=== PATIENT | female | born 1960 | race Caucasian/White ===

== ENCOUNTER 2020-12-08 02:25 | Emergency (ER) | payer OTHER ==
[2020-12-08 02:39] VITALS: TEMP 98.6; BMI 22.3
[2020-12-08] MEDS ORDERED: FAMOTIDINE 20 MG/50 ML IVPB 20 MG/50 ML MG IVPB ONE (03:12)
[2020-12-08] MEDS ORDERED: MAG HYDROX/AL HYDROX/SIMETH 30 ML UNIT-DOSE CUP PO ONE (03:12)
[2020-12-08] MEDS ORDERED: SODIUM CHLORIDE 1,000 ML IV STA (03:12)
[2020-12-08] MEDS ORDERED: ONDANSETRON 4 MG/2 ML VIAL IVPUSH ONE ×2 (03:16→08:55)
[2020-12-08 04:05] LABS: HEMATOCRIT 44.4 % (32.4-45.2); HEMOGLOBIN 15.4 GM/dL (10.7-15.3); MCH 30.4 pg (25.7-33.7); MCHC 34.6 g/dl (32.0-36.0); MEAN CELL VOLUME 87.7 fl (80-96); MEAN PLT VOLUME 9.1 fl (7.5-11.1); PLATELET COUNT 235 K/MM3 (134-434); RBC 5.06 M/mm3 (3.60-5.2); RDW 13.1 % (11.6-15.6); WHITE BLOOD COUNT 12.7 K/mm3 (4.0-10.0)
[2020-12-08 04:28] LABS: POTASSIUM 3.7 mmol/L (3.5-5.1)
[2020-12-08 04:30] LABS: CALCIUM 9.4 mg/dL (8.5-10.1)
[2020-12-08 04:31] LABS: ALBUMIN 3.7 g/dl (3.4-5.0); BLOOD UREA NITROGEN 14.2 mg/dL (7-18)
[2020-12-08 04:34] LABS: CREATININE 0.9 mg/dL (0.55-1.3)
[2020-12-08 04:35] LABS: BILIRUBIN,TOTAL 0.7 mg/dL (0.2-1)
[2020-12-08 04:37] LABS: TOT PROT 7.6 g/dl (6.4-8.2)
[2020-12-08 08:10] VITALS: BP 159/83
[2020-12-08 08:42] LABS: EPI CELLS 6 /uL (0-25.1); HYALINE CASTS 1 /uL (0-3.1); PH,URINE 6.5 (5.0-8.0); URINE APPEARANCE CLEAR; URINE BACTERIA 67 /uL (0-1359); URINE BILIRUBIN NEGATIVE (NEGATIVE); URINE COLOR YELLOW; URINE GLUCOSE (UA) NEGATIVE (NEGATIVE); URINE KETONE TRACE (NEGATIVE); URINE LEUK ESTERASE NEGATIVE (NEGATIVE); URINE NITRITE NEGATIVE (NEGATIVE); URINE PROTEIN NEGATIVE (NEGATIVE); URINE RBC 37 /uL (0-23.9); URINE UROBILINOGEN 0.2 mg/dL (0.2-1.0); URINE WBC 2 /uL (0-25.8)
[2020-12-08 08:51] VITALS: PULSE 72
[2020-12-08] MEDS ORDERED: ONDANSETRON 4 MG/2 ML VIAL ONE (09:02)
== END 2020-12-08 09:11 | disposition home or self-care (01) ==
LOC: JER 02:25
PROC: 3E033NZ Introduction of Analgesics, Hypnotics, Sedatives into Peripheral Vein, Percutaneous Approach (ICD-10-PCS; principal; 2020-12-08)
PROC: 3E0337Z Introduction of Electrolytic and Water Balance Substance into Peripheral Vein, Percutaneous Approach (ICD-10-PCS; 2020-12-08)
PROC: 3E033GC Introduction of Other Therapeutic Substance into Peripheral Vein, Percutaneous Approach (ICD-10-PCS; 2020-12-08)
DX: R10.13 Epigastric pain (principal); R11.2 Nausea with vomiting, unspecified
CPT/HCPCS: 36415; 71045-TC-FY; 80053; 81003; 83605; 83690; 85027; 87086; 87804; 93005; 93010; 99285-25

== ENCOUNTER 2020-12-09 12:39 | Inpatient (IN) | payer OTHER ==
[2020-12-09] MEDS ORDERED: LACTATED RINGERS SOLUTION 1000 ML INFUS.BAG IV ONE ×2 (13:14→16:52)
[2020-12-09] MEDS ORDERED: ONDANSETRON 4 MG/2 ML VIAL IVPUSH ONE (13:20)
[2020-12-09] MEDS ORDERED: FAMOTIDINE 20 MG/50 ML IVPB 20 MG/50 ML MG IVPB ONE ×2 (13:20→13:43)
[2020-12-09 13:36] LABS: BASO % 0.5 % (0-2.0); EOS % 0.6 % (0-4.5); HEMATOCRIT 45.2 % (32.4-45.2); HEMOGLOBIN 15.5 GM/dL (10.7-15.3); LYMPH % 9.8 % (8-40); MCH 30.2 pg (25.7-33.7); MCHC 34.4 g/dl (32.0-36.0); MEAN CELL VOLUME 87.8 fl (80-96); MEAN PLT VOLUME 9.5 fl (7.5-11.1); MONO % 6.4 % (3.8-10.2); NEUT % 82.7 % (42.8-82.8); PLATELET COUNT 237 K/MM3 (134-434); RBC 5.15 M/mm3 (3.60-5.2); RDW 13.3 % (11.6-15.6)
[2020-12-09] MEDS ORDERED: METOCLOPRAMIDE HCL INJECTION 10 MG/2 ML VIAL IVPB ONE (13:38)
[2020-12-09] MEDS ORDERED: METOCLOPRAMIDE HCL INJECTION 10 MG/2 ML VIAL ONE (13:43)
[2020-12-09 14:01] LABS: CHLORIDE 103 mmol/L (98-107); POTASSIUM 3.4 mmol/L (3.5-5.1); SODIUM 138 mmol/L (136-145)
[2020-12-09 14:04] LABS: CALCIUM 9.5 mg/dL (8.5-10.1)
[2020-12-09 14:05] LABS: ANION GAP 10 MMOL/L (8-16); BLOOD UREA NITROGEN 16.7 mg/dL (7-18); CO2 24 mmol/L (21-32); GLUCOSE,RANDOM 97 mg/dL (74-106); LIPASE 55 U/L (73-393); MAGNESIUM 2.1 mg/dL (1.8-2.4)
[2020-12-09 14:07] LABS: CREATININE 0.9 mg/dL (0.55-1.3); SGOT/AST 12 U/L (15-37); SGPT/ALT 21 U/L (13-61)
[2020-12-09 14:09] LABS: BILIRUBIN,TOTAL 0.8 mg/dL (0.2-1); TOT PROT 7.6 g/dl (6.4-8.2)
[2020-12-09 14:10] LABS: ALK PHOS 127 U/L (45-117)
[2020-12-09] MEDS ORDERED: VANCOMYCIN 1 GM in D5W (PRE-DOCKED) 1,000 MG/250 ML IVPB ONE (17:39)
[2020-12-09] MEDS ORDERED: AMPICILLIN NA/SULBACTAM NA 3 GM in SODIUM CHLORIDE 100 ML IVPB ONE (17:39)
[2020-12-09] MEDS ORDERED: HALOPERIDOL LACTATE 5 MG/ML IM ONE (17:43)
[2020-12-09] MEDS ORDERED: LORazepam 2 MG/ML SDV VIAL IVPUSH ONE (17:44)
[2020-12-09] MEDS ORDERED: ONDANSETRON 4 MG/2 ML VIAL IVPUSH PRN (17:56)
[2020-12-09] MEDS ORDERED: MORPHINE SULFATE 2 MG/ML VIAL SQ PRN (18:04)
[2020-12-09] MEDS ORDERED: HALOPERIDOL LACTATE 5 MG/ML ONE (18:14)
[2020-12-09] MEDS ORDERED: PANTOPRAZOLE SODIUM 40 MG VIAL ONE (18:15)
[2020-12-09] MEDS ORDERED: LORazepam 2 MG/ML SDV VIAL ONE (18:15)
[2020-12-09] MEDS ORDERED: VANCOMYCIN 1 GRAM (PRE-DOCKED) 1,000 MG/250 ML BAG IVPB ONE (18:15)
[2020-12-09] MEDS ORDERED: PT OWN MED DRAWER 7, Y5N ONE (18:15)
[2020-12-09] MEDS: NICOTINE 7 MG/24 HOURS TOPICAL PATCH TD SCH (18:58)
[2020-12-09] MEDS: D5-1/2NS+10 MEQ KCL - 10 MEQ/1,000 ML INFUS.BAG IV SCH (18:58)
[2020-12-09] MEDS: LACTATED RINGERS SOLUTION 1,000 ML/1,000 ML INFUS.BAG IV SCH (18:58)
[2020-12-09] MEDS: PANTOPRAZOLE SODIUM 40 MG VIAL IVPUSH SCH (18:58)
[2020-12-09 19:57] LABS: OPIATES, URI NEGATIVE ng/ml (CUTOFF=300); PHENCYCLIDINE,URINE NEGATIVE ng/ml (CUTOFF=25)
[2020-12-09 20:11] LABS: COCAINE, UR NEGATIVE ng/ml (CUTOFF=300)
[2020-12-09 20:12] LABS: URINE AMPHETAMINES NEGATIVE ng/ml (CUTOFF=500); URINE BARBITURATES NEGATIVE ng/ml (CUTOFF=200); URINE BENZODIAZEPINES NEGATIVE ng/ml (CUTOFF=200)
[2020-12-09 20:14] LABS: METHADONE, UR POSITIVE ng/ml (CUTOFF=300)
[2020-12-09] MEDS: AMPICILLIN NA/SULBACTAM NA 3 GM in SODIUM CHLORIDE 100 ML IVPB SCH (21:47)
[2020-12-10 01:48] VITALS: BMI 20.7
[2020-12-10] MEDS: AMPICILLIN NA/SULBACTAM NA 3 GM in SODIUM CHLORIDE 100 ML IVPB SCH ×3 (02:28→17:51)
[2020-12-10] MEDS: amLODIPine BESYLATE 5 MG TABLET (FP) PO ONE (06:02)
[2020-12-10] MEDS: METHADONE HCL 10 MG TABLET PO PRN (08:23)
[2020-12-10] MEDS: D5-1/2NS+10 MEQ KCL - 10 MEQ/1,000 ML INFUS.BAG IV SCH ×2 (09:49→23:25)
[2020-12-10] MEDS: NICOTINE 7 MG/24 HOURS TOPICAL PATCH TD SCH (09:50)
[2020-12-10] MEDS: PANTOPRAZOLE SODIUM 40 MG VIAL IVPUSH SCH (09:56)
[2020-12-10] MEDS ORDERED: METHADONE 15 MG PO SCH (10:00)
[2020-12-10] MEDS ORDERED: METHADONE 10 MG, METHADONE 5 MG PO PRN (10:00)
[2020-12-10 12:16] LABS: BASO % 0.7 % (0-2.0); EOS % 2.8 % (0-4.5); HEMATOCRIT 38.7 % (32.4-45.2); HEMOGLOBIN 13.8 GM/dL (10.7-15.3); LYMPH % 23.2 % (8-40); MCH 30.7 pg (25.7-33.7); MCHC 35.6 g/dl (32.0-36.0); MEAN CELL VOLUME 86.2 fl (80-96); MEAN PLT VOLUME 9.3 fl (7.5-11.1); MONO % 9.1 % (3.8-10.2); NEUT % 64.2 % (42.8-82.8); PLATELET COUNT 223 K/MM3 (134-434); RBC 4.49 M/mm3 (3.60-5.2); RDW 13.3 % (11.6-15.6)
[2020-12-10 12:33] LABS: POTASSIUM 3.3 mmol/L (3.5-5.1)
[2020-12-10 12:34] LABS: CALCIUM 8.6 mg/dL (8.5-10.1)
[2020-12-10 12:35] LABS: ALBUMIN 3.2 g/dl (3.4-5.0); BLOOD UREA NITROGEN 7.8 mg/dL (7-18)
[2020-12-10 12:38] LABS: CREATININE 0.8 mg/dL (0.55-1.3)
[2020-12-10 12:39] LABS: BILIRUBIN,TOTAL 0.6 mg/dL (0.2-1)
[2020-12-10 12:40] LABS: TOT PROT 6.4 g/dl (6.4-8.2)
[2020-12-10] MEDS: KCL 10 MEQ IVPB 10 MEQ/100 ML INFUS.BAG IVPB SCH ×2 (14:33→14:44)
[2020-12-10] MEDS ORDERED: POTASSIUM CHLORIDE ORAL LIQUID 20 MEQ/15 ML PO ONE (14:41)
[2020-12-10] MEDS: VANCOMYCIN 1 GRAM (PRE-DOCKED) 1,000 MG/250 ML BAG IVPB SCH (15:06)
[2020-12-10] MEDS ORDERED: PT OWN MED DRAWER 7, Y5N ONE (17:33)
[2020-12-10] MEDS: ACETAMINOPHEN 325 MG TABLET (FP) PO PRN (22:11)
[2020-12-11] MEDS ORDERED: PT OWN MED DRAWER 7, Y5N ONE ×4 (00:43→17:30)
[2020-12-11] MEDS: AMPICILLIN NA/SULBACTAM NA 3 GM in SODIUM CHLORIDE 100 ML IVPB SCH ×3 (01:10→18:48)
[2020-12-11] MEDS ORDERED: TRIMETHOBENZAMIDE HCL 200MG/2ML INJ IM PRN (02:15)
[2020-12-11] MEDS: VANCOMYCIN 1 GRAM (PRE-DOCKED) 1,000 MG/250 ML BAG IVPB SCH ×2 (02:20→16:45)
[2020-12-11] MEDS ORDERED: METOCLOPRAMIDE HCL 10 MG TABLET (FP) PO ONE (02:45)
[2020-12-11] MEDS ORDERED: MORPHINE SULFATE 2 MG/ML VIAL IV PRN (04:17)
[2020-12-11] MEDS ORDERED: amLODIPine BESYLATE 5 MG TABLET (FP) PO ONE ×2 (05:55→09:21)
[2020-12-11] MEDS: METHADONE HCL 10 MG TABLET PO PRN (08:54)
[2020-12-11] MEDS: amLODIPine BESYLATE 5 MG TABLET (FP) PO ONE (09:07)
[2020-12-11] MEDS: PANTOPRAZOLE SODIUM 40 MG VIAL IVPUSH SCH (09:07)
[2020-12-11] MEDS: NICOTINE 7 MG/24 HOURS TOPICAL PATCH TD SCH (09:08)
[2020-12-11] MEDS ORDERED: amLODIPine BESYLATE 5 MG TABLET (FP) PO SCH ×2 (10:00)
[2020-12-11] MEDS: D5-1/2NS+10 MEQ KCL - 10 MEQ/1,000 ML INFUS.BAG IV SCH (18:40)
[2020-12-11] MEDS: LACTATED RINGERS SOLUTION 1,000 ML/1,000 ML INFUS.BAG IV SCH (18:48)
[2020-12-12] MEDS: ACETAMINOPHEN 325 MG TABLET (FP) PO PRN ×2 (01:07→11:23)
[2020-12-12] MEDS ORDERED: PT OWN MED DRAWER 7, Y5N ONE (01:12)
[2020-12-12] MEDS: AMPICILLIN NA/SULBACTAM NA 3 GM in SODIUM CHLORIDE 100 ML IVPB SCH ×3 (01:17→17:28)
[2020-12-12] MEDS: VANCOMYCIN 1 GRAM (PRE-DOCKED) 1,000 MG/250 ML BAG IVPB SCH (03:08)
[2020-12-12 08:37] LABS: BASO % 1.1 % (0-2.0); EOS % 4.7 % (0-4.5); HEMATOCRIT 37.3 % (32.4-45.2); HEMOGLOBIN 13.4 GM/dL (10.7-15.3); LYMPH % 23.3 % (8-40); MCH 31.4 pg (25.7-33.7); MEAN CELL VOLUME 87.2 fl (80-96); MEAN PLT VOLUME 9.1 fl (7.5-11.1); MONO % 8.4 % (3.8-10.2); NEUT % 62.5 % (42.8-82.8); PLATELET COUNT 222 K/MM3 (134-434); RBC 4.28 M/mm3 (3.60-5.2); RDW 13.2 % (11.6-15.6); WHITE BLOOD COUNT 10.9 K/mm3 (4.0-10.0)
[2020-12-12 08:53] LABS: POTASSIUM 3.8 mmol/L (3.5-5.1)
[2020-12-12 08:59] LABS: CALCIUM 8.6 mg/dL (8.5-10.1)
[2020-12-12 09:00] LABS: MAGNESIUM 1.8 mg/dL (1.8-2.4)
[2020-12-12 09:03] LABS: CREATININE 0.8 mg/dL (0.55-1.3); PHOSPHOROUS 3.3 mg/dL (2.5-4.9)
[2020-12-12 09:04] LABS: BILIRUBIN,TOTAL 0.7 mg/dL (0.2-1)
[2020-12-12 09:05] LABS: TOT PROT 6.1 g/dl (6.4-8.2)
[2020-12-12] MEDS: METHADONE HCL 10 MG TABLET PO PRN (09:37)
[2020-12-12] MEDS: NICOTINE 7 MG/24 HOURS TOPICAL PATCH TD SCH (09:37)
[2020-12-12] MEDS: PANTOPRAZOLE SODIUM 40 MG VIAL IVPUSH SCH (09:37)
[2020-12-12] MEDS: amLODIPine BESYLATE 10 MG TABLET (FP) PO SCH (09:37)
[2020-12-12 18:45] LABS: INR 1.01 (0.83-1.09); PROTHROMBIN TIME (PATIENT) 12.4 SEC (9.7-13.0)
[2020-12-12 18:48] LABS: ACTIVATED PTT 34.2 SECONDS (25.2-36.5)
[2020-12-13] MEDS: AMPICILLIN NA/SULBACTAM NA 3 GM in SODIUM CHLORIDE 100 ML IVPB SCH ×2 (01:20→10:33)
[2020-12-13 06:29] VITALS: TEMP 98.1
[2020-12-13 07:11] LABS: BASO % 0.8 % (0-2.0); EOS % 3.7 % (0-4.5); HEMOGLOBIN 12.3 GM/dL (10.7-15.3); LYMPH % 22.3 % (8-40); MCH 30.8 pg (25.7-33.7); MCHC 35.1 g/dl (32.0-36.0); MEAN CELL VOLUME 87.9 fl (80-96); MEAN PLT VOLUME 9.2 fl (7.5-11.1); NEUT % 65.2 % (42.8-82.8); PLATELET COUNT 215 K/MM3 (134-434); RBC 3.98 M/mm3 (3.60-5.2); RDW 13.3 % (11.6-15.6); WHITE BLOOD COUNT 11.2 K/mm3 (4.0-10.0)
[2020-12-13 07:44] LABS: ALBUMIN 2.9 g/dl (3.4-5.0); BLOOD UREA NITROGEN 10.9 mg/dL (7-18); CALCIUM 8.5 mg/dL (8.5-10.1); MAGNESIUM 1.8 mg/dL (1.8-2.4)
[2020-12-13 07:48] LABS: PHOSPHOROUS 3.7 mg/dL (2.5-4.9)
[2020-12-13 07:49] LABS: BILIRUBIN,TOTAL 0.4 mg/dL (0.2-1); TOT PROT 5.9 g/dl (6.4-8.2)
[2020-12-13 07:51] LABS: POTASSIUM 4.1 mmol/L (3.5-5.1)
[2020-12-13] MEDS ORDERED: METHADONE HCL 10 MG TABLET PO SCH (08:30)
[2020-12-13] MEDS: METHADONE 10 MG, METHADONE 5 MG PO SCH ×2 (10:25→10:32)
[2020-12-13] MEDS ORDERED: METHADONE HCL 5 MG TABLET ONE (10:29)
[2020-12-13] MEDS ORDERED: METHADONE HCL 10 MG TABLET ONE (10:29)
[2020-12-13] MEDS ORDERED: PT OWN MED DRAWER 7, Y5N ONE (10:30)
[2020-12-13] MEDS: amLODIPine BESYLATE 10 MG TABLET (FP) PO SCH (10:33)
[2020-12-13] MEDS: NICOTINE 7 MG/24 HOURS TOPICAL PATCH TD SCH (10:33)
[2020-12-13] MEDS: PANTOPRAZOLE SODIUM 40 MG VIAL IVPUSH SCH (10:33)
[2020-12-13 10:44] VITALS: BP 148/76; PULSE 64
== END 2020-12-13 14:57 | disposition home or self-care (01) | DRG 897 ==
LOC: JER 12:39 → JERBED 17:33 → J7W 22:48
PROVIDERS: ADMIT Internal Medicine; ATTEND Student in an Organized Health Care Education/Training Program
PROC: HZ2ZZZZ Detoxification Services for Substance Abuse Treatment (ICD-10-PCS; principal; 2020-12-09)
DX: F11.23 Opioid dependence with withdrawal (principal); I76 Septic arterial embolism; J98.4 Other disorders of lung; I10 Essential (primary) hypertension; F17.210 Nicotine dependence, cigarettes, uncomplicated; R94.31 Abnormal electrocardiogram [ECG] [EKG]; R10.13 Epigastric pain; K76.0 Fatty (change of) liver, not elsewhere classified; N28.1 Cyst of kidney, acquired; I16.0 Hypertensive urgency; K59.09 Other constipation; K52.9 Noninfective gastroenteritis and colitis, unspecified; I35.1 Nonrheumatic aortic (valve) insufficiency
CPT/HCPCS: 36415; 71046-TC-FY; 71250-TC; 74177-TC; 80053; 80061; 80307; 82550; 83605; 83690; 83721; 83735; 84100; 84443; 84484; 85025; 85610; 85730; 86140; 86480; 87040; 87086; 87899; 93005; 93010; 93306-TC; 99285-25; C9803; Q9967; U0003

== ENCOUNTER 2021-01-07 13:53 | Emergency (ER) | payer OTHER ==
[2021-01-07 14:06] VITALS: BMI 23.0
[2021-01-07] MEDS ORDERED: KETOROLAC TROMETHAMINE 30 MG/1 ML VIAL IVPUSH ONE (14:49)
[2021-01-07] MEDS ORDERED: KETOROLAC TROMETHAMINE 30 MG/1 ML VIAL ONE (14:57)
[2021-01-07 14:58] LABS: BASO % 0.7 % (0-2.0); EOS % 1.7 % (0-4.5); HEMATOCRIT 37.4 % (32.4-45.2); HEMOGLOBIN 13.1 GM/dL (10.7-15.3); LYMPH % 20.8 % (8-40); MCH 31.1 pg (25.7-33.7); MEAN PLT VOLUME 8.7 fl (7.5-11.1); MONO % 6.5 % (3.8-10.2); NEUT % 70.3 % (42.8-82.8); PLATELET COUNT 239 K/MM3 (134-434); RDW 13.6 % (11.6-15.6); WHITE BLOOD COUNT 9.7 K/mm3 (4.0-10.0)
[2021-01-07] MEDS ORDERED: LACTATED RINGERS SOLUTION 1000 ML INFUS.BAG IV ONE (15:03)
[2021-01-07 15:04] LABS: INR 1.06 (0.83-1.09); PROTHROMBIN TIME (PATIENT) 12.8 SEC (9.7-13.0)
[2021-01-07 15:07] LABS: ACTIVATED PTT 34.4 SECONDS (25.2-36.5)
[2021-01-07 15:16] LABS: POTASSIUM 3.9 mmol/L (3.5-5.1)
[2021-01-07 15:19] LABS: ALBUMIN 3.7 g/dl (3.4-5.0); BLOOD UREA NITROGEN 13.1 mg/dL (7-18); CALCIUM 9.6 mg/dL (8.5-10.1)
[2021-01-07 15:24] LABS: BILIRUBIN,TOTAL 0.5 mg/dL (0.2-1); TOT PROT 7.9 g/dl (6.4-8.2)
[2021-01-07 15:51] LABS: EPI CELLS 16 /uL (0-25.1); HYALINE CASTS 1 /uL (0-3.1); PH,URINE 6.5 (5.0-8.0); URINE APPEARANCE CLEAR; URINE BACTERIA 32 /uL (0-1359); URINE BILIRUBIN NEGATIVE (NEGATIVE); URINE COLOR YELLOW; URINE GLUCOSE (UA) NEGATIVE (NEGATIVE); URINE KETONE NEGATIVE (NEGATIVE); URINE LEUK ESTERASE NEGATIVE (NEGATIVE); URINE NITRITE NEGATIVE (NEGATIVE); URINE PROTEIN NEGATIVE (NEGATIVE); URINE RBC 57 /uL (0-23.9); URINE UROBILINOGEN 0.2 mg/dL (0.2-1.0); URINE WBC 11 /uL (0-25.8)
[2021-01-07 18:20] VITALS: BP 146/77; PULSE 68
[2021-01-07] MEDS ORDERED: CEFTRIAXONE 1 GM in DEXTROSE 5%-WATER - 50 ML IVPB ONE (19:23)
[2021-01-07] MEDS ORDERED: CEFTRIAXONE 1 GM/50 ML BAG ONE (19:25)
== END 2021-01-07 19:55 | disposition home or self-care (01) ==
LOC: JER 13:53
PROC: 3E03329 Introduction of Other Anti-infective into Peripheral Vein, Percutaneous Approach (ICD-10-PCS; principal; 2021-01-07)
PROC: 3E0333Z Introduction of Anti-inflammatory into Peripheral Vein, Percutaneous Approach (ICD-10-PCS; 2021-01-07)
DX: R10.9 Unspecified abdominal pain (principal); R91.1 Solitary pulmonary nodule; Z79.891 Long term (current) use of opiate analgesic
CPT/HCPCS: 36415; 71045-TC-FY; 71275-TC; 74177-TC; 76775; 80053; 81003; 83690; 85025; 85610; 85730; 86850; 86900; 86901; 87086; 93005; 93010; 96365; 96375; 99285-25; C9803; U0003; U0005

== ENCOUNTER 2021-03-18 10:59 | Emergency (ER) | payer OTHER ==
[2021-03-18] MEDS ORDERED: METOCLOPRAMIDE HCL INJECTION 10 MG/2 ML VIAL IVPUSH ONE (11:20)
[2021-03-18] MEDS ORDERED: SODIUM CHLORIDE 1,000 ML IV ONE (11:20)
[2021-03-18] MEDS ORDERED: ACETAMINOPHEN 1000 MG/100 ML VIAL (NON FORMULARY) IVPB ONE (11:20)
[2021-03-18 11:22] VITALS: TEMP 98.7; BMI 21.9
[2021-03-18] MEDS ORDERED: METOCLOPRAMIDE HCL INJECTION 10 MG/2 ML VIAL ONE (11:53)
[2021-03-18] MEDS ORDERED: ACETAMINOPHEN INJECTION 100 ML IVPB ONE (11:53)
[2021-03-18 13:11] LABS: INR 1.23 (0.83-1.09); PROTHROMBIN TIME (PATIENT) 14.8 SEC (9.7-13.0)
[2021-03-18 13:16] LABS: BASO % 0.4 % (0-2.0); EOS % 0.3 % (0-4.5); HEMATOCRIT 42.4 % (32.4-45.2); HEMOGLOBIN 14.8 GM/dL (10.7-15.3); LYMPH % 9.1 % (8-40); MCH 30.5 pg (25.7-33.7); MEAN PLT VOLUME 9.3 fl (7.5-11.1); MONO % 7.3 % (3.8-10.2); NEUT % 82.9 % (42.8-82.8); PLATELET COUNT 237 K/MM3 (134-434); RBC 4.87 M/mm3 (3.60-5.2); RDW 13.4 % (11.6-15.6); WHITE BLOOD COUNT 17.4 K/mm3 (4.0-10.0)
[2021-03-18 13:27] LABS: ALBUMIN 3.8 g/dl (3.4-5.0); CALCIUM 9.3 mg/dL (8.5-10.1)
[2021-03-18 13:31] LABS: BILIRUBIN,TOTAL 0.8 mg/dL (0.2-1); TOT PROT 8.1 g/dl (6.4-8.2)
[2021-03-18 13:32] LABS: BLOOD UREA NITROGEN 22.2 mg/dL (7-18)
[2021-03-18] MEDS ORDERED: METHADONE (DETOX) 10 MG, METHADONE (DETOX) 5 MG PO ONE (16:41)
[2021-03-18] MEDS ORDERED: METHADONE HCL 10 MG TABLET ONE (16:58)
[2021-03-18] MEDS ORDERED: METHADONE HCL 5 MG TABLET ONE (16:59)
[2021-03-18 17:35] LABS: EPI CELLS >36 /uL (0-25.1); HYALINE CASTS 0 /uL (0-3.1); URINE APPEARANCE CLEAR; URINE BACTERIA 199 /uL (0-1359); URINE BILIRUBIN NEGATIVE (NEGATIVE); URINE COLOR YELLOW; URINE GLUCOSE (UA) NEGATIVE (NEGATIVE); URINE KETONE 1+ (NEGATIVE); URINE LEUK ESTERASE NEGATIVE (NEGATIVE); URINE NITRITE NEGATIVE (NEGATIVE); URINE PROTEIN NEGATIVE (NEGATIVE); URINE RBC 85 /uL (0-23.9); URINE WBC 7 /uL (0-25.8)
[2021-03-18] MEDS ORDERED: ACETAMINOPHEN 325 MG TABLET (FP) PO ONE (18:13)
[2021-03-18] MEDS ORDERED: ACETAMINOPHEN 325 MG TABLET (FP) ONE (18:14)
[2021-03-18 18:20] VITALS: BP 158/87; PULSE 88
== END 2021-03-18 18:20 | disposition home or self-care (01) ==
LOC: JER 10:59
PROC: 3E033NZ Introduction of Analgesics, Hypnotics, Sedatives into Peripheral Vein, Percutaneous Approach (ICD-10-PCS; principal; 2021-03-18)
PROC: 3E033GC Introduction of Other Therapeutic Substance into Peripheral Vein, Percutaneous Approach (ICD-10-PCS; 2021-03-18)
PROC: 3E0337Z Introduction of Electrolytic and Water Balance Substance into Peripheral Vein, Percutaneous Approach (ICD-10-PCS; 2021-03-18)
DX: R10.31 Right lower quadrant pain (principal)
CPT/HCPCS: 36415; 71045-TC-FY; 74177-TC; 80053; 81003; 82550; 83690; 84484; 85025; 85610; 86850; 86900; 86901; 87040; 93005; 93010; 96361; 96374; 96375; 99285-25; J0131